=== PATIENT | male | born 1975 | race Caucasian/White ===

== ENCOUNTER 2024-06-16 20:25 | Observation (INO) | payer MEDICAID ==
[2024-06-16] MEDS ORDERED: Zofran 4 MG/2 ML VIAL ONE (20:42)
[2024-06-16] MEDS ORDERED: MORPHINE SULFATE 4 MG INJ ONE (20:42)
[2024-06-16] MEDS ORDERED: Sodium Chloride 0.9% 1000 ML 1,000 ML ONE (20:43)
[2024-06-16] MEDS: Sodium Chloride 0.9% 1000 ML 1,000 ML IV STA (20:47)
[2024-06-16] MEDS: MORPHINE SULFATE 4 MG INJ IV ONE (20:48)
[2024-06-16] MEDS: Zofran 4 MG/2 ML VIAL IV ONE (20:48)
[2024-06-16 20:55] LABS: Absolute Neutrophil Ct (ANC) 5.44 x10^3/uL (1.78-5.38); BASOPHIL % 0.4 % (0.2-1.2); Basophil (Absolute #) 0.03 x10^3/uL (0.01-0.08); Eosinophil % 1.5 % (0.8-7.0); Eosinophil (Absolute #) 0.13 x10^3/uL (0.04-0.54); Hematocrit 30.4 % (40.1-51.0); Hemoglobin 10.5 g/dL (13.7-17.5); IMMATURE GRAN # 0.04 x10^3u/L (0.001-0.031); IMMATURE GRAN % 0.5 % (0.001-0.429); Lymphocyte (Absolute #) 2.12 x10^3/uL (1.32-3.57); Lymphocytes % 24.8 % (21.8-53.1); Mean Cell Volume 83.3 fL (79.0-92.2); Mean Corpuscular Hemoglobin 28.8 pg (25.7-32.2); Mean Corpuscular Hgb Concent. 34.5 g/dL (32.3-36.5); Mean Platelet Volume 9.1 fL (9.4-12.4); Monocyte (Absolute #) 0.79 x10^3/uL (0.30-0.82); Monocytes % 9.2 % (5.3-12.2); Neutrophil % 63.6 % (34.0-67.9); Platelet Count 254 x10^3/uL (163-337); Red Blood Count 3.65 x10^6/uL (4.63-6.08); Red Cell Distribution Width 12.5 % (11.6-14.4); White Blood Count 8.6 x10^3/uL (4.23-9.07)
[2024-06-16 21:32] LABS: INFLUENZA A NEGATIVE (NEGATIVE); INFLUENZA B NEGATIVE (NEGATIVE); RESPIRATORY SYNCTIAL VIRUS NEGATIVE (NEGATIVE); SARS-CoV-2 Xpert Express NEGATIVE (NEGATIVE)
[2024-06-16] MEDS ORDERED: Ativan 2 MG/1 ML VIAL ONE (21:43)
[2024-06-16] MEDS ORDERED: Keppra 500 MG/5 ML ONE (21:43)
[2024-06-16] MEDS ORDERED: D5w 100ML Mini Bag 100 ML 100 ML IV ONE (21:44)
[2024-06-16] MEDS: Ativan 2 MG/1 ML VIAL IV ONE (21:45)
[2024-06-16] MEDS: Keppra 500 MG/5 ML*** 1,500 MG in D5w 100ML Mini Bag 100 ML 100 ML IV ONE (21:46)
[2024-06-16 22:04] LABS: ALBUMIN 3.8 g/dL (3.5-5.0); ANION GAP 13.8 MEQ/L (5-15); BILIRUBIN,TOTAL 0.3 mg/dL (0.2-1.3); Calcium 9.1 mg/dL (8.4-10.2); Creatinine 1 0.75 mg/dL (0.66-1.25); EST GLOMERULAR FILTRATION RATE 109.9 ML/MIN; MAGNESIUM 1.7 mg/dL (1.6-2.3); Potassium 4.7 mmol/L (3.5-5.1)
--- NOTE | 2024-06-16 22:32 | XRAY ---
Indication: Chest pain. Comparison: None Portable chest demonstrates minimal left base subsegmental atelectasis/scarring. Remaining heart and lungs unremarkable. Bony thorax intact with mild degenerative changes.
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
[2024-06-16 23:49] LABS: Appearance Clear (Clear); Bacteria None Seen /HPF (None Seen); Bilirubin Negative (Negative); Blood Negative (Negative); Epithelial Cells None Seen /HPF (None Seen); Glucose, Urine Negative (Negative); Hyaline Casts NONE SEEN /LPF (0-2); Ketones Negative (Negative); Leukocyte Esterase Negative (Negative); Nitrite Negative (Negative); Protein,Urine Dip Negative (Negative); RBC 0-2 /HPF (0-5); Specific Gravity <=1.005 (1.005-1.030); Urobilinogen 0.2 mg/dL (0.2); WBC 0-2 /HPF (0-5)
[2024-06-17] MEDS ORDERED: Nitrostat 0.4 MG Tablet SL PRN (02:32)
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
[2024-06-17 04:57] LABS: Hematocrit 32.1 % (40.1-51.0); Hemoglobin 10.5 g/dL (13.7-17.5); Mean Cell Volume 88.2 fL (79.0-92.2); Mean Corpuscular Hemoglobin 28.8 pg (25.7-32.2); Mean Corpuscular Hgb Concent. 32.7 g/dL (32.3-36.5); Mean Platelet Volume 9.7 fL (9.4-12.4); Platelet Count 224 x10^3/uL (163-337); Red Blood Count 3.64 x10^6/uL (4.63-6.08); Red Cell Distribution Width 12.7 % (11.6-14.4); White Blood Count 7.1 x10^3/uL (4.23-9.07)
[2024-06-17 05:43] LABS: ANION GAP 16.8 MEQ/L (5-15); Calcium 8.8 mg/dL (8.4-10.2); Creatinine 1 0.64 mg/dL (0.66-1.25); EST GLOMERULAR FILTRATION RATE 115.3 ML/MIN; Potassium 4.4 mmol/L (3.5-5.1)
[2024-06-17] MEDS ORDERED: Tums EX 750 MG PO PRN (07:18)
[2024-06-17] MEDS: HUMALOG SQ SCH (08:10)
[2024-06-17] MEDS: ECOTRIN 81 MG PO SCH (10:29)
[2024-06-17] MEDS: VITAMIN B-1 100 MG PO SCH (10:29)
[2024-06-17] MEDS: KEPPRA PO SCH (10:29)
[2024-06-17] MEDS: FOLATE 1 MG PO SCH (10:29)
[2024-06-17] MEDS: Risperdal 1 MG PO SCH (10:30)
[2024-06-17] MEDS: Senokot-S Tablet PO SCH (10:30)
[2024-06-17] MEDS: NEURONTIN PO SCH (10:30)
[2024-06-17] MEDS: lamICTAL 100MG TABLET PO SCH (10:31)
[2024-06-17] MEDS: Zestril 5 MG PO SCH (10:31)
[2024-06-17] MEDS: NICODERM CQ 14 MG TOP SCH (10:32)
[2024-06-17] MEDS: Artificial Tears 15 ML OP SCH (11:36)
--- NOTE | 2024-06-17 14:10 | PCM.DS ---
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 admitted on 06/17 at 2:47 AM. Patient has had seizures since a traumatic brain injury at 9 years of age. Pt reported on admission that for the last month he has been having more frequent seizures, at least 1 a day, although sometimes more than that. He was previously residing at a jail in [place], but moved 2 days ago to [facility]. He was having seizures there, so the provider increase his Lamictal from 25 mg to 50 mg. However, patient had 3 further seizures today, and so he was sent to the emergency room. He had another witnessed generalized tonic-clonic seizure in the ED, requiring Ativan, and then he was loaded with IV Keppra. Patient also notes that for the past 2 days he has been having burning substernal chest pain, radiating to the left arm, associated with dyspnea, nausea, and numbness, lasting a few hours. Occurring at rest, but also worsened after one of his seizures. He has a history of prior stents placed, and notes that this pain is similar to that pain before. He states he is currently having this chest pain. However, his history is somewhat variable; nursing mentioned that she had just asked him about chest pain he denied any thing. Also, his jail records show he has orders for PRN Bentyl and calcium carbonate for chest pain, and patient notes that he does get some relief of his burning chest pain with these medications. He also has PRN nitroglycerin at the jail, but he states this has either not been used or not been helpful in his symptoms. Since admission pt has had no further seizures. Neurology consulted and recommended to continue continue Keppra 500 BID and ok to d/c back to [facility]. Pt to f/u OP with neurology. - Vitals & Intake/Output Vital Signs: Vital Signs Temperature 97.4 F 06/17/24 11:58 Pulse Rate 74 06/17/24 11:58 Respiratory Rate 17 06/17/24 11:58 Blood Pressure 157/82 06/17/24 11:58 O2 Sat by Pulse Oximetry 96 06/17/24 11:58 Intake & Output: Intake & Output 06/15/24 06/16/24 06/17/24 06/18/24 11:59 11:59 11:59 11:59 Intake Total 520 Balance 520 Weight 123.3 kg - Lab Result Diagrams: 06/17/24 04:35 06/17/24 04:35 Lab Results-Last 24 Hrs: Lab Results-Last 24 Hours 06/16/24 06/16/24 06/16/24 Range/Units 20:45 20:48 20:48 WBC 8.6 (4.23-9.07) x10^3/uL RBC 3.65 L (4.63-6.08) x10^6/uL Hgb 10.5 L (13.7-17.5) g/dL Hct 30.4 L (40.1-51.0) % MCV 83.3 (79.0-92.2) fL MCH 28.8 (25.7-32.2) pg MCHC 34.5 (32.3-36.5) g/dL RDW 12.5 (11.6-14.4) % Plt Count 254 (163-337) x10^3/uL MPV 9.1 L (9.4-12.4) fL Gran % 63.6 (34.0-67.9) % Immature Gran % (Auto) 0.5 H (0.001-0.429) % Nucleat RBC Rel Count 0.0 (0.00-0.2) % Eos # (Auto) 0.13 (0.04-0.54) x10^3/uL Immature Gran # (Auto) 0.04 H (0.001-0.031) x10^3u/L Absolute Lymphs (auto) 2.12 (1.32-3.57) x10^3/uL Absolute Monos (auto) 0.79 (0.30-0.82) x10^3/uL Absolute Nucleated RBC 0.00 (0.00-0.012) x10^3u/L Lymphocytes % 24.8 (21.8-53.1) % Monocytes % 9.2 (5.3-12.2) % Eosinophils % 1.5 (0.8-7.0) % Basophils % 0.4 (0.2-1.2) % Absolute Granulocytes 5.44 H (1.78-5.38) x10^3/uL Basophils # 0.03 (0.01-0.08) x10^3/uL Sodium 135 (135-145) mmol/L Potassium 4.7 (3.5-5.1) mmol/L Chloride 102 (98-107) mmol/L Carbon Dioxide 24 (22-30) mmol/L Anion Gap 13.8 (5-15) MEQ/L BUN 18 (9-20) mg/dL Creatinine 0.75 (0.66-1.25) mg/dL Estimated GFR 109.9 ML/MIN Glucose 178 H (74-106) mg/dL POC Glucometer (74 to 106) mg/dL Lactic Acid 1.2 (0.4-2.0) Calcium 9.1 (8.4-10.2) mg/dL Magnesium 1.7 (1.6-2.3) mg/dL Total Bilirubin 0.30 (0.2-1.3) mg/dL AST 31 (17-59) U/L ALT 25 (0-50) U/L Alkaline Phosphatase 89 (38-126) U/L Creatine Kinase 356 H (55-170) U/L Troponin I (0.000-0.033) ng/mL Serum Total Protein 6.0 L (6.3-8.2) g/dL Albumin 3.8 (3.5-5.0) g/dL Lipase 232 (23-300) U/L Urine Color (Yellow) Urine Appearance (Clear) Urine pH (4.6-8.0) Ur Specific [place] (1.005-1.030) Urine Protein (Negative) Urine Glucose (UA) (Negative) mg/dL Urine Ketones (Negative) Urine Blood (Negative) Urine Nitrite (Negative) Urine Bilirubin (Negative) Urine Urobilinogen (0.2) mg/dL Ur Leukocyte Esterase (Negative) U Hyaline Cast (Auto) (0-2) /LPF Urine Microscopic RBC (0-5) /HPF Urine Microscopic WBC (0-5) /HPF Ur Epithelial Cells (None Seen) /HPF Urine Bacteria (None Seen) /HPF Urine Culture Reflexed (NO) Influenza Type A Ag (NEGATIVE) Influenza Type B Ag (NEGATIVE) RSV (PCR) (NEGATIVE) SARS-CoV-2 (PCR) (NEGATIVE) 06/16/24 06/16/24 06/16/24 Range/Units 20:48 20:50 22:10 WBC (4.23-9.07) x10^3/uL RBC (4.63-6.08) x10^6/uL Hgb (13.7-17.5) g/dL Hct (40.1-51.0) % MCV (79.0-92.2) fL MCH (25.7-32.2) pg MCHC (32.3-36.5) g/dL RDW (11.6-14.4) % Plt Count (163-337) x10^3/uL MPV (9.4-12.4) fL Gran % (34.0-67.9) % Immature Gran % (Auto) (0.001-0.429) % Nucleat RBC Rel Count (0.00-0.2) % Eos # (Auto) (0.04-0.54) x10^3/uL Immature Gran # (Auto) (0.001-0.031) x10^3u/L Absolute Lymphs (auto) (1.32-3.57) x10^3/uL Absolute Monos (auto) (0.30-0.82) x10^3/uL Absolute Nucleated RBC (0.00-0.012) x10^3u/L Lymphocytes % (21.8-53.1) % Monocytes % (5.3-12.2) % Eosinophils % (0.8-7.0) % Basophils % (0.2-1.2) % Absolute Granulocytes (1.78-5.38) x10^3/uL Basophils # (0.01-0.08) x10^3/uL Sodium (135-145) mmol/L Potassium (3.5-5.1) mmol/L Chloride (98-107) mmol/L Carbon Dioxide (22-30) mmol/L Anion Gap (5-15) MEQ/L BUN (9-20) mg/dL Creatinine (0.66-1.25) mg/dL Estimated GFR ML/MIN Glucose (74-106) mg/dL POC Glucometer (74 to 106) mg/dL Lactic Acid (0.4-2.0) Calcium (8.4-10.2) mg/dL Magnesium (1.6-2.3) mg/dL Total Bilirubin (0.2-1.3) mg/dL AST (17-59) U/L ALT (0-50) U/L Alkaline Phosphatase (38-126) U/L Creatine Kinase (55-170) U/L Troponin I < 0.012 (0.000-0.033) ng/mL Serum Total Protein (6.3-8.2) g/dL Albumin (3.5-5.0) g/dL Lipase (23-300) U/L Urine Color Yellow (Yellow) Urine Appearance Clear (Clear) Urine pH 6.0 (4.6-8.0) Ur Specific [place] <=1.005 (1.005-1.030) Urine Protein Negative (Negative) Urine Glucose (UA) Negative (Negative) mg/dL Urine Ketones Negative (Negative) Urine Blood Negative (Negative) Urine Nitrite Negative (Negative) Urine Bilirubin Negative (Negative) Urine Urobilinogen 0.2 (0.2) mg/dL Ur Leukocyte Esterase Negative (Negative) U Hyaline Cast (Auto) NONE SEEN (0-2) /LPF Urine Microscopic RBC 0-2 (0-5) /HPF Urine Microscopic WBC 0-2 (0-5) /HPF Ur Epithelial Cells None Seen (None Seen) /HPF Urine Bacteria None Seen (None Seen) /HPF Urine Culture Reflexed NO (NO) Influenza Type A Ag NEGATIVE (NEGATIVE) Influenza Type B Ag NEGATIVE (NEGATIVE) RSV (PCR) NEGATIVE (NEGATIVE) SARS-CoV-2 (PCR) NEGATIVE (NEGATIVE) 06/17/24 06/17/24 06/17/24 Range/Units 01:04 04:33 04:35 WBC (4.23-9.07) x10^3/uL RBC (4.63-6.08) x10^6/uL Hgb (13.7-17.5) g/dL Hct (40.1-51.0) % MCV (79.0-92.2) fL MCH (25.7-32.2) pg MCHC (32.3-36.5) g/dL RDW (11.6-14.4) % Plt Count (163-337) x10^3/uL MPV (9.4-12.4) fL Gran % (34.0-67.9) % Immature Gran % (Auto) (0.001-0.429) % Nucleat RBC Rel Count (0.00-0.2) % Eos # (Auto) (0.04-0.54) x10^3/uL Immature Gran # (Auto) (0.001-0.031) x10^3u/L Absolute Lymphs (auto) (1.32-3.57) x10^3/uL Absolute Monos (auto) (0.30-0.82) x10^3/uL Absolute Nucleated RBC (0.00-0.012) x10^3u/L Lymphocytes % (21.8-53.1) % Monocytes % (5.3-12.2) % Eosinophils % (0.8-7.0) % Basophils % (0.2-1.2) % Absolute Granulocytes (1.78-5.38) x10^3/uL Basophils # (0.01-0.08) x10^3/uL Sodium (135-145) mmol/L Potassium (3.5-5.1) mmol/L Chloride (98-107) mmol/L Carbon Dioxide (22-30) mmol/L Anion Gap (5-15) MEQ/L BUN (9-20) mg/dL Creatinine (0.66-1.25) mg/dL Estimated GFR ML/MIN Glucose (74-106) mg/dL POC Glucometer (74 to 106) mg/dL Lactic Acid (0.4-2.0) Calcium (8.4-10.2) mg/dL Magnesium (1.6-2.3) mg/dL Total Bilirubin (0.2-1.3) mg/dL AST (17-59) U/L ALT (0-50) U/L Alkaline Phosphatase (38-126) U/L Creatine Kinase 245 H (55-170) U/L Troponin I < 0.012 < 0.012 (0.000-0.033) ng/mL Serum Total Protein (6.3-8.2) g/dL Albumin (3.5-5.0) g/dL Lipase (23-300) U/L Urine Color (Yellow) Urine Appearance (Clear) Urine pH (4.6-8.0) Ur Specific [place] (1.005-1.030) Urine Protein (Negative) Urine Glucose (UA) (Negative) mg/dL Urine Ketones (Negative) Urine Blood (Negative) Urine Nitrite (Negative) Urine Bilirubin (Negative) Urine Urobilinogen (0.2) mg/dL Ur Leukocyte Esterase (Negative) U Hyaline Cast (Auto) (0-2) /LPF Urine Microscopic RBC (0-5) /HPF Urine Microscopic WBC (0-5) /HPF Ur Epithelial Cells (None Seen) /HPF Urine Bacteria (None Seen) /HPF Urine Culture Reflexed (NO) Influenza Type A Ag (NEGATIVE) Influenza Type B Ag (NEGATIVE) RSV (PCR) (NEGATIVE) SARS-CoV-2 (PCR) (NEGATIVE) 06/17/24 06/17/24 06/17/24 Range/Units 04:35 04:35 07:39 WBC 7.1 (4.23-9.07) x10^3/uL RBC 3.64 L (4.63-6.08) x10^6/uL Hgb 10.5 L (13.7-17.5) g/dL Hct 32.1 L (40.1-51.0) % MCV 88.2 (79.0-92.2) fL MCH 28.8 (25.7-32.2) pg MCHC 32.7 (32.3-36.5) g/dL RDW 12.7 (11.6-14.4) % Plt Count 224 (163-337) x10^3/uL MPV 9.7 (9.4-12.4) fL Gran % (34.0-67.9) % Immature Gran % (Auto) (0.001-0.429) % Nucleat RBC Rel Count (0.00-0.2) % Eos # (Auto) (0.04-0.54) x10^3/uL Immature Gran # (Auto) (0.001-0.031) x10^3u/L Absolute Lymphs (auto) (1.32-3.57) x10^3/uL Absolute Monos (auto) (0.30-0.82) x10^3/uL Absolute Nucleated RBC (0.00-0.012) x10^3u/L Lymphocytes % (21.8-53.1) % Monocytes % (5.3-12.2) % Eosinophils % (0.8-7.0) % Basophils % (0.2-1.2) % Absolute Granulocytes (1.78-5.38) x10^3/uL Basophils # (0.01-0.08) x10^3/uL Sodium 138 (135-145) mmol/L Potassium 4.4 (3.5-5.1) mmol/L Chloride 105 (98-107) mmol/L Carbon Dioxide 21 L (22-30) mmol/L Anion Gap 16.8 H (5-15) MEQ/L BUN 15 (9-20) mg/dL Creatinine 0.64 L (0.66-1.25) mg/dL Estimated GFR 115.3 ML/MIN Glucose 163 H (74-106) mg/dL POC Glucometer 145 H (74 to 106) mg/dL Lactic Acid (0.4-2.0) Calcium 8.8 (8.4-10.2) mg/dL Magnesium (1.6-2.3) mg/dL Total Bilirubin (0.2-1.3) mg/dL AST (17-59) U/L ALT (0-50) U/L Alkaline Phosphatase (38-126) U/L Creatine Kinase (55-170) U/L Troponin I (0.000-0.033) ng/mL Serum Total Protein (6.3-8.2) g/dL Albumin (3.5-5.0) g/dL Lipase (23-300) U/L Urine Color (Yellow) Urine Appearance (Clear) Urine pH (4.6-8.0) Ur Specific [place] (1.005-1.030) Urine Protein (Negative) Urine Glucose (UA) (Negative) mg/dL Urine Ketones (Negative) Urine Blood (Negative) Urine Nitrite (Negative) Urine Bilirubin (Negative) Urine Urobilinogen (0.2) mg/dL Ur Leukocyte Esterase (Negative) U Hyaline Cast (Auto) (0-2) /LPF Urine Microscopic RBC (0-5) /HPF Urine Microscopic WBC (0-5) /HPF Ur Epithelial Cells (None Seen) /HPF Urine Bacteria (None Seen) /HPF Urine Culture Reflexed (NO) Influenza Type A Ag (NEGATIVE) Influenza Type B Ag (NEGATIVE) RSV (PCR) (NEGATIVE) SARS-CoV-2 (PCR) (NEGATIVE) 06/17/24 Range/Units 11:36 WBC (4.23-9.07) x10^3/uL RBC (4.63-6.08) x10^6/uL Hgb (13.7-17.5) g/dL Hct (40.1-51.0) % MCV (79.0-92.2) fL MCH (25.7-32.2) pg MCHC (32.3-36.5) g/dL RDW (11.6-14.4) % Plt Count (163-337) x10^3/uL MPV (9.4-12.4) fL Gran % (34.0-67.9) % Immature Gran % (Auto) (0.001-0.429) % Nucleat RBC Rel Count (0.00-0.2) % Eos # (Auto) (0.04-0.54) x10^3/uL Immature Gran # (Auto) (0.001-0.031) x10^3u/L Absolute Lymphs (auto) (1.32-3.57) x10^3/uL Absolute Monos (auto) (0.30-0.82) x10^3/uL Absolute Nucleated RBC (0.00-0.012) x10^3u/L Lymphocytes % (21.8-53.1) % Monocytes % (5.3-12.2) % Eosinophils % (0.8-7.0) % Basophils % (0.2-1.2) % Absolute Granulocytes (1.78-5.38) x10^3/uL Basophils # (0.01-0.08) x10^3/uL Sodium (135-145) mmol/L Potassium (3.5-5.1) mmol/L Chloride (98-107) mmol/L Carbon Dioxide (22-30) mmol/L Anion Gap (5-15) MEQ/L BUN (9-20) mg/dL Creatinine (0.66-1.25) mg/dL Estimated GFR ML/MIN Glucose (74-106) mg/dL POC Glucometer 169 H (74 to 106) mg/dL Lactic Acid (0.4-2.0) Calcium (8.4-10.2) mg/dL Magnesium (1.6-2.3) mg/dL Total Bilirubin (0.2-1.3) mg/dL AST (17-59) U/L ALT (0-50) U/L Alkaline Phosphatase (38-126) U/L Creatine Kinase (55-170) U/L Troponin I (0.000-0.033) ng/mL Serum Total Protein (6.3-8.2) g/dL Albumin (3.5-5.0) g/dL Lipase (23-300) U/L Urine Color (Yellow) Urine Appearance (Clear) Urine pH (4.6-8.0) Ur Specific [place] (1.005-1.030) Urine Protein (Negative) Urine Glucose (UA) (Negative) mg/dL Urine Ketones (Negative) Urine Blood (Negative) Urine Nitrite (Negative) Urine Bilirubin (Negative) Urine Urobilinogen (0.2) mg/dL Ur Leukocyte Esterase (Negative) U Hyaline Cast (Auto) (0-2) /LPF Urine Microscopic RBC (0-5) /HPF Urine Microscopic WBC (0-5) /HPF Ur Epithelial Cells (None Seen) /HPF Urine Bacteria (None Seen) /HPF Urine Culture Reflexed (NO) Influenza Type A Ag (NEGATIVE) Influenza Type B Ag (NEGATIVE) RSV (PCR) (NEGATIVE) SARS-CoV-2 (PCR) (NEGATIVE) Micro Results-Entire Visit: Accuchecks Date 06/17/24 Date 06/17/24 Time 11:56 Time 07:56 - Radiology Exams Ordered Rad Exams-Entire Visit: Radiology Procedures Category Date Time Status CHEST 1 VIEW (PORTABLE) Stat Exams 06/16/24 21:13 Completed - Procedures and Test Procedures and Tests throughout Hospitalization: Therapy Orders & Screens 06/17/24 02:44 EKG PRN Comment: Diagnosis: Recurrent seizures, chest pain r/o Discharge Exam General Appearance: no apparent distress, alert, obese Neurologic Exam: alert, oriented x 3, cooperative, normal mood/affect, nml cerebellar function, sensation nml, No motor deficits Eye Exam: PERRL, EOMI, eyes nml inspection Ears, Nose, Throat Exam: normal ENT inspection, pharynx normal, moist mucous membranes Neck Exam: normal inspection, non-tender, supple, full range of motion Respiratory Exam: normal breath sounds, lungs clear, No respiratory distress Cardiovascular Exam: regular rate/rhythm, normal heart sounds Gastrointestinal/Abdomen Exam: soft, No tenderness, No mass Male Genitalia Exam: deferred Rectal Exam: deferred Back Exam: normal inspection, normal range of motion, No CVA tenderness, No vertebral tenderness Extremity Exam: normal inspection, normal range of motion Skin Exam: normal color, warm, dry Final Diagnosis/Problem List - Final Discharge Diagnosis/Problem (1) Recurrent seizures Current Visit: Yes Status: Acute Code(s): G40.909 - EPILEPSY, UNSP, NOT INTRACTABLE, WITHOUT STATUS EPILEPTICUS (2) Chest pain Current Visit: Yes Status: Acute Code(s): R07.9 - CHEST PAIN, UNSPECIFIED (3) HTN (hypertension) Current Visit: Yes Status: Acute Code(s): I10 - ESSENTIAL (PRIMARY) HYPERTENSION (4) Hx of coronary artery disease Current Visit: Yes Status: Acute Code(s): Z86.79 - PERSONAL HISTORY OF OTHER DISEASES OF THE CIRCULATORY SYSTEM (5) Type II diabetes mellitus Current Visit: Yes Status: Acute (6) Schizoaffective disorder Current Visit: Yes Status: Acute Code(s): F25.9 - SCHIZOAFFECTIVE DISORDER, UNSPECIFIED (7) Nicotine dependence Current Visit: Yes Status: Acute Assessment & Plan: ## Recurrent seizures secondary to TBI. It appears that the seizures have been uncontrolled for at least the last month, although the history is somewhat unreliable. However, he is been having multiple seizures throughout the day today. No clear triggers for why this would be. He was loaded with Keppra, and has not had seizures since then. Continue home Lamictal 50 BID (note, this dose was just recently increased) Start Keppra 500 mg p.o. BID, as this is what was used to terminate his seizures in the ED - Neurology consult- recommended to continue Keppra OP and F/U with neurology OP. ## Chest pain patient has risk factors with his smoking history, prior [place], and somewhat typical description of his angina with associated symptoms, although appears to be nonexertional and perhaps not relieved by nitroglycerin. Also, the symptoms appear to be associated with his seizures, and may not truly reflect angina. His first 2 troponins are negative, and he has no EKG changes. Monitor on telemetry troponin x3 negative Try to relieve his chest pain with his PRN Bentyl and Tums from his home medication list, and if relieved, will not pursue further stress testing ## Type 2 diabetes on insulin at home. Continue home Lantus 45 units QHS, lispro 10 units with meals Placed on moderate dose sliding scale insulin Hold home metformin while inpatient ## Hypertension blood pressure controlled Continue home lisinopril 5 ## History of CAD with reported history of stent placement. Continue atorvastatin 20, aspirin 81 mg ## Schizoaffective disorder Continue home risperidone 1 mg BID, gabapentin 300 TID, Lexapro 15 QHS ## Nicotine dependence patient is a former half pack a day smoker, but quit 3 months ago. Continue nicotine 14 mg patch - advised cessation Code(s): F17.200 - NICOTINE DEPENDENCE, UNSPECIFIED, UNCOMPLICATED - Discharge Discharge Date: 06/17/24 (Lexie Alexander) Disposition: XFER OTHER Condition: Stable Prescriptions: New Levetiracetam [Keppra] 500 mg PO BID 30 Days #60 tablet Continue Calcium Carbonate [Tums] 1,000 mg PO Q8H PRN PRN PRN Reason: Chest Pain Guaifen/Phenyleph/Acetaminophn [Mucinex Sinus-Max Severe Cplt] 1 tab PO DAILY PRN PRN PRN Reason: Sinus Congestion Nitroglycerin 0.4 mg SL DAILY PRN PRN PRN Reason: Chest Pain Sennosides/Docusate Sodium [Senna-Docusate Sodium Tablet] 2 tab PO BID risperiDONE [Risperidone] 1 mg PO BID Nicotine 14 mg [Nicoderm Cq 14 mg] 14 mg TOP DAILY Metformin HCl 500 mg [Glucophage 500 MG] 500 mg PO BID Melatonin 10 mg PO HS Loperamide HCl [Loperamide] 2 mg PO Q2H/PRN PRN PRN Reason: Diarrhea lisinopriL [Lisinopril] 5 mg PO DAILY Lamotrigine [Lamotrigine ER] 50 mg PO BID Insulin Glargine,Hum.rec.anlog [Lantus] 45 unit SQ HS Insulin Lispro 10 units SQ AC Insulin Lispro [Insulin Lispro Kwikpen U-100] 1 unit IJ UD glyBURIDE [Glyburide] 2.5 mg PO DAILY Gabapentin 300 mg PO TID Folic Acid 1 mg PO DAILY Famotidine 40 mg PO HS Escitalopram Oxalate 15 mg PO HS Dicyclomine HCl 20 mg [Bentyl 20 mg] 20 mg PO Q6H PRN PRN PRN Reason: Chest Pain Menthol [Biofreeze] 1 applic TOP DAILY Carboxymethylcellulose Sodium [Artificial Tears] 1 drop OP BID Aspirin 81 mg PO DAILY Acetaminophen 325 mg [Tylenol 325 mg] 650 mg PO Q4H PRN PRN PRN Reason: Pain Atorvastatin Calcium 20 mg PO HS Thiamine HCl [Vitamin B-1] 100 mg PO DAILY Follow up with: DOCTOR,NO FAMILY [Primary Care Provider] -
[2024-06-17] MEDS: Nitrostat 0.4 MG Tablet SL PRN (15:26)
[2024-06-17] MEDS: TYLENOL 325 MG PO PRN (15:29)
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
--- NOTE | 2024-06-17 16:29 | PCM.NOTE ---
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 admitted on 06/17 at 2:47 AM. Patient has had seizures since a traumatic brain injury at 9 years of age. Pt reported on admission that for the last month he has been having more frequent seizures, at least 1 a day, although sometimes more than that. He was previously residing at a halfway in [place], but moved 2 days ago to [facility]. He was having seizures there, so the provider increase his Lamictal from 25 mg to 50 mg. However, patient had 3 further seizures today, and so he was sent to the emergency room. He had another witnessed generalized tonic-clonic seizure in the ED, requiring Ativan, and then he was loaded with IV Keppra. Patient also notes that for the past 2 days he has been having burning substernal chest pain, radiating to the left arm, associated with dyspnea, nausea, and numbness, lasting a few hours. Occurring at rest, but also worsened after one of his seizures. He has a history of prior stents placed, and notes that this pain is similar to that pain before. He states he is currently having this chest pain. However, his history is somewhat variable; nursing mentioned that she had just asked him about chest pain he denied anything. Also, his halfway records show he has orders for PRN Bentyl and calcium carbonate for chest pain, and patient notes that he does get some relief of his burning chest pain with these medications. He also has PRN nitroglycerin at the halfway, but he states this has either not been used or not been helpful in his symptoms. Since admission pt has had no further seizures. Neurology consulted and recommended to continue continue Keppra 500 BID and ok to d/c back to [facility]. Pt to f/u OP with neurology. Pt later this afternoon had a seizure, unsure of how lillian it lasted but ativan 2mg IV was given. He then developed CP and requested Morphine. Since he just had ativan this was not provided as to not cause resp. depression. Nitro provided, EKG, and trops x3 ordered. Discussed pt case with cardiology. Call out to neurology to ask if pt needs to be seizure free for a certain period of time prior to d/c. Will keep pt overnight. - Review of Systems Constitutional: No Fever, No Chills Eyes: No Symptoms Ears, Nose, & Throat: No Symptoms Respiratory: No Cough, No Short Of Breath Cardiac: Chest Pain, No Edema, No Syncope Abdominal/Gastrointestinal: No Abdominal Pain, No Nausea, No Vomiting, No Diarrhea Genitourinary Symptoms: No Dysuria Musculoskeletal: No Back Pain, No Neck Pain Skin: No Rash Neurological: Seizure, No Dizziness, No Focal Weakness, No Sensory Changes Psychological: No Symptoms Endocrine: No Symptoms Hematologic/Lymphatic: No Symptoms Immunological/Allergic: No Symptoms Objective Exam General Appearance: no apparent distress, alert Neurologic Exam: alert, oriented x 3, cooperative, normal mood/affect, nml cerebellar function, sensation nml, No motor deficits Skin Exam: normal color, warm, dry Eye Exam: PERRL, EOMI, eyes nml inspection Ears, Nose, Throat Exam: normal ENT inspection, pharynx normal, moist mucous membranes Neck Exam: normal inspection, non-tender, supple, full range of motion Respiratory Exam: normal breath sounds, lungs clear, No respiratory distress Cardiovascular Exam: regular rate/rhythm, normal heart sounds Gastrointestinal/Abdomen Exam: soft, No tenderness, No mass Extremity Exam: normal inspection, normal range of motion Back Exam: normal inspection, normal range of motion, No CVA tenderness, No vertebral tenderness Male Genitalia Exam: deferred Rectal Exam: deferred Objective Data Vital Signs: Vital Signs - 24 hr Temp Pulse Resp BP BP Pulse Ox 06/17/24 16:22 78 122/65 06/17/24 15:26 72 122/65 06/17/24 15:21 72 15 122/65 94 L 06/17/24 11:58 97.4 F 74 17 157/82 96 06/17/24 07:56 97.2 F 65 18 121/65 96 06/17/24 04:00 97.1 F 63 20 121/59 96 06/17/24 01:54 97.6 F 70 18 113/60 96 06/17/24 01:03 64 17 126/77 95 06/17/24 00:59 96 06/17/24 00:30 63 18 126/77 96 06/17/24 00:21 95 06/17/24 00:00 65 18 143/90 95 06/16/24 23:30 65 17 150/94 06/16/24 23:00 67 14 157/99 95 06/16/24 22:30 64 15 155/97 96 06/16/24 22:00 88 19 167/91 97 06/16/24 21:30 64 7 L 164/94 98 06/16/24 21:00 68 12 154/82 97 06/16/24 20:42 72 17 165/82 98 06/16/24 20:39 97.3 F 75 20 165/82 95 Pain Assessment - Last Documented Pain Intensity 8 Pain Scale Used 0-10 Pain Scale Intake and Output: Intake & Output 06/15/24 06/16/24 06/17/24 06/18/24 11:59 11:59 11:59 11:59 Intake Total 520 480 Balance 520 480 Weight 123.3 kg Lab Results: Lab Results-Last 24 Hours 06/16/24 06/16/24 06/16/24 Range/Units 20:45 20:48 20:48 WBC 8.6 (4.23-9.07) x10^3/uL RBC 3.65 L (4.63-6.08) x10^6/uL Hgb 10.5 L (13.7-17.5) g/dL Hct 30.4 L (40.1-51.0) % MCV 83.3 (79.0-92.2) fL MCH 28.8 (25.7-32.2) pg MCHC 34.5 (32.3-36.5) g/dL RDW 12.5 (11.6-14.4) % Plt Count 254 (163-337) x10^3/uL MPV 9.1 L (9.4-12.4) fL Gran % 63.6 (34.0-67.9) % Immature Gran % (Auto) 0.5 H (0.001-0.429) % Nucleat RBC Rel Count 0.0 (0.00-0.2) % Eos # (Auto) 0.13 (0.04-0.54) x10^3/uL Immature Gran # (Auto) 0.04 H (0.001-0.031) x10^3u/L Absolute Lymphs (auto) 2.12 (1.32-3.57) x10^3/uL Absolute Monos (auto) 0.79 (0.30-0.82) x10^3/uL Absolute Nucleated RBC 0.00 (0.00-0.012) x10^3u/L Lymphocytes % 24.8 (21.8-53.1) % Monocytes % 9.2 (5.3-12.2) % Eosinophils % 1.5 (0.8-7.0) % Basophils % 0.4 (0.2-1.2) % Absolute Granulocytes 5.44 H (1.78-5.38) x10^3/uL Basophils # 0.03 (0.01-0.08) x10^3/uL Sodium 135 (135-145) mmol/L Potassium 4.7 (3.5-5.1) mmol/L Chloride 102 (98-107) mmol/L Carbon Dioxide 24 (22-30) mmol/L Anion Gap 13.8 (5-15) MEQ/L BUN 18 (9-20) mg/dL Creatinine 0.75 (0.66-1.25) mg/dL Estimated GFR 109.9 ML/MIN Glucose 178 H (74-106) mg/dL POC Glucometer (74 to 106) mg/dL Lactic Acid 1.2 (0.4-2.0) Calcium 9.1 (8.4-10.2) mg/dL Magnesium 1.7 (1.6-2.3) mg/dL Total Bilirubin 0.30 (0.2-1.3) mg/dL AST 31 (17-59) U/L ALT 25 (0-50) U/L Alkaline Phosphatase 89 (38-126) U/L Creatine Kinase 356 H (55-170) U/L Troponin I (0.000-0.033) ng/mL Serum Total Protein 6.0 L (6.3-8.2) g/dL Albumin 3.8 (3.5-5.0) g/dL Lipase 232 (23-300) U/L Urine Color (Yellow) Urine Appearance (Clear) Urine pH (4.6-8.0) Ur Specific [place] (1.005-1.030) Urine Protein (Negative) Urine Glucose (UA) (Negative) mg/dL Urine Ketones (Negative) Urine Blood (Negative) Urine Nitrite (Negative) Urine Bilirubin (Negative) Urine Urobilinogen (0.2) mg/dL Ur Leukocyte Esterase (Negative) U Hyaline Cast (Auto) (0-2) /LPF Urine Microscopic RBC (0-5) /HPF Urine Microscopic WBC (0-5) /HPF Ur Epithelial Cells (None Seen) /HPF Urine Bacteria (None Seen) /HPF Urine Culture Reflexed (NO) Influenza Type A Ag (NEGATIVE) Influenza Type B Ag (NEGATIVE) RSV (PCR) (NEGATIVE) SARS-CoV-2 (PCR) (NEGATIVE) 06/16/24 06/16/24 06/16/24 Range/Units 20:48 20:50 22:10 WBC (4.23-9.07) x10^3/uL RBC (4.63-6.08) x10^6/uL Hgb (13.7-17.5) g/dL Hct (40.1-51.0) % MCV (79.0-92.2) fL MCH (25.7-32.2) pg MCHC (32.3-36.5) g/dL RDW (11.6-14.4) % Plt Count (163-337) x10^3/uL MPV (9.4-12.4) fL Gran % (34.0-67.9) % Immature Gran % (Auto) (0.001-0.429) % Nucleat RBC Rel Count (0.00-0.2) % Eos # (Auto) (0.04-0.54) x10^3/uL Immature Gran # (Auto) (0.001-0.031) x10^3u/L Absolute Lymphs (auto) (1.32-3.57) x10^3/uL Absolute Monos (auto) (0.30-0.82) x10^3/uL Absolute Nucleated RBC (0.00-0.012) x10^3u/L Lymphocytes % (21.8-53.1) % Monocytes % (5.3-12.2) % Eosinophils % (0.8-7.0) % Basophils % (0.2-1.2) % Absolute Granulocytes (1.78-5.38) x10^3/uL Basophils # (0.01-0.08) x10^3/uL Sodium (135-145) mmol/L Potassium (3.5-5.1) mmol/L Chloride (98-107) mmol/L Carbon Dioxide (22-30) mmol/L Anion Gap (5-15) MEQ/L BUN (9-20) mg/dL Creatinine (0.66-1.25) mg/dL Estimated GFR ML/MIN Glucose (74-106) mg/dL POC Glucometer (74 to 106) mg/dL Lactic Acid (0.4-2.0) Calcium (8.4-10.2) mg/dL Magnesium (1.6-2.3) mg/dL Total Bilirubin (0.2-1.3) mg/dL AST (17-59) U/L ALT (0-50) U/L Alkaline Phosphatase (38-126) U/L Creatine Kinase (55-170) U/L Troponin I < 0.012 (0.000-0.033) ng/mL Serum Total Protein (6.3-8.2) g/dL Albumin (3.5-5.0) g/dL Lipase (23-300) U/L Urine Color Yellow (Yellow) Urine Appearance Clear (Clear) Urine pH 6.0 (4.6-8.0) Ur Specific [place] <=1.005 (1.005-1.030) Urine Protein Negative (Negative) Urine Glucose (UA) Negative (Negative) mg/dL Urine Ketones Negative (Negative) Urine Blood Negative (Negative) Urine Nitrite Negative (Negative) Urine Bilirubin Negative (Negative) Urine Urobilinogen 0.2 (0.2) mg/dL Ur Leukocyte Esterase Negative (Negative) U Hyaline Cast (Auto) NONE SEEN (0-2) /LPF Urine Microscopic RBC 0-2 (0-5) /HPF Urine Microscopic WBC 0-2 (0-5) /HPF Ur Epithelial Cells None Seen (None Seen) /HPF Urine Bacteria None Seen (None Seen) /HPF Urine Culture Reflexed NO (NO) Influenza Type A Ag NEGATIVE (NEGATIVE) Influenza Type B Ag NEGATIVE (NEGATIVE) RSV (PCR) NEGATIVE (NEGATIVE) SARS-CoV-2 (PCR) NEGATIVE (NEGATIVE) 06/17/24 06/17/24 06/17/24 Range/Units 01:04 04:33 04:35 WBC (4.23-9.07) x10^3/uL RBC (4.63-6.08) x10^6/uL Hgb (13.7-17.5) g/dL Hct (40.1-51.0) % MCV (79.0-92.2) fL MCH (25.7-32.2) pg MCHC (32.3-36.5) g/dL RDW (11.6-14.4) % Plt Count (163-337) x10^3/uL MPV (9.4-12.4) fL Gran % (34.0-67.9) % Immature Gran % (Auto) (0.001-0.429) % Nucleat RBC Rel Count (0.00-0.2) % Eos # (Auto) (0.04-0.54) x10^3/uL Immature Gran # (Auto) (0.001-0.031) x10^3u/L Absolute Lymphs (auto) (1.32-3.57) x10^3/uL Absolute Monos (auto) (0.30-0.82) x10^3/uL Absolute Nucleated RBC (0.00-0.012) x10^3u/L Lymphocytes % (21.8-53.1) % Monocytes % (5.3-12.2) % Eosinophils % (0.8-7.0) % Basophils % (0.2-1.2) % Absolute Granulocytes (1.78-5.38) x10^3/uL Basophils # (0.01-0.08) x10^3/uL Sodium (135-145) mmol/L Potassium (3.5-5.1) mmol/L Chloride (98-107) mmol/L Carbon Dioxide (22-30) mmol/L Anion Gap (5-15) MEQ/L BUN (9-20) mg/dL Creatinine (0.66-1.25) mg/dL Estimated GFR ML/MIN Glucose (74-106) mg/dL POC Glucometer (74 to 106) mg/dL Lactic Acid (0.4-2.0) Calcium (8.4-10.2) mg/dL Magnesium (1.6-2.3) mg/dL Total Bilirubin (0.2-1.3) mg/dL AST (17-59) U/L ALT (0-50) U/L Alkaline Phosphatase (38-126) U/L Creatine Kinase 245 H (55-170) U/L Troponin I < 0.012 < 0.012 (0.000-0.033) ng/mL Serum Total Protein (6.3-8.2) g/dL Albumin (3.5-5.0) g/dL Lipase (23-300) U/L Urine Color (Yellow) Urine Appearance (Clear) Urine pH (4.6-8.0) Ur Specific [place] (1.005-1.030) Urine Protein (Negative) Urine Glucose (UA) (Negative) mg/dL Urine Ketones (Negative) Urine Blood (Negative) Urine Nitrite (Negative) Urine Bilirubin (Negative) Urine Urobilinogen (0.2) mg/dL Ur Leukocyte Esterase (Negative) U Hyaline Cast (Auto) (0-2) /LPF Urine Microscopic RBC (0-5) /HPF Urine Microscopic WBC (0-5) /HPF Ur Epithelial Cells (None Seen) /HPF Urine Bacteria (None Seen) /HPF Urine Culture Reflexed (NO) Influenza Type A Ag (NEGATIVE) Influenza Type B Ag (NEGATIVE) RSV (PCR) (NEGATIVE) SARS-CoV-2 (PCR) (NEGATIVE) 06/17/24 06/17/24 06/17/24 Range/Units 04:35 04:35 07:39 WBC 7.1 (4.23-9.07) x10^3/uL RBC 3.64 L (4.63-6.08) x10^6/uL Hgb 10.5 L (13.7-17.5) g/dL Hct 32.1 L (40.1-51.0) % MCV 88.2 (79.0-92.2) fL MCH 28.8 (25.7-32.2) pg MCHC 32.7 (32.3-36.5) g/dL RDW 12.7 (11.6-14.4) % Plt Count 224 (163-337) x10^3/uL MPV 9.7 (9.4-12.4) fL Gran % (34.0-67.9) % Immature Gran % (Auto) (0.001-0.429) % Nucleat RBC Rel Count (0.00-0.2) % Eos # (Auto) (0.04-0.54) x10^3/uL Immature Gran # (Auto) (0.001-0.031) x10^3u/L Absolute Lymphs (auto) (1.32-3.57) x10^3/uL Absolute Monos (auto) (0.30-0.82) x10^3/uL Absolute Nucleated RBC (0.00-0.012) x10^3u/L Lymphocytes % (21.8-53.1) % Monocytes % (5.3-12.2) % Eosinophils % (0.8-7.0) % Basophils % (0.2-1.2) % Absolute Granulocytes (1.78-5.38) x10^3/uL Basophils # (0.01-0.08) x10^3/uL Sodium 138 (135-145) mmol/L Potassium 4.4 (3.5-5.1) mmol/L Chloride 105 (98-107) mmol/L Carbon Dioxide 21 L (22-30) mmol/L Anion Gap 16.8 H (5-15) MEQ/L BUN 15 (9-20) mg/dL Creatinine 0.64 L (0.66-1.25) mg/dL Estimated GFR 115.3 ML/MIN Glucose 163 H (74-106) mg/dL POC Glucometer 145 H (74 to 106) mg/dL Lactic Acid (0.4-2.0) Calcium 8.8 (8.4-10.2) mg/dL Magnesium (1.6-2.3) mg/dL Total Bilirubin (0.2-1.3) mg/dL AST (17-59) U/L ALT (0-50) U/L Alkaline Phosphatase (38-126) U/L Creatine Kinase (55-170) U/L Troponin I (0.000-0.033) ng/mL Serum Total Protein (6.3-8.2) g/dL Albumin (3.5-5.0) g/dL Lipase (23-300) U/L Urine Color (Yellow) Urine Appearance (Clear) Urine pH (4.6-8.0) Ur Specific [place] (1.005-1.030) Urine Protein (Negative) Urine Glucose (UA) (Negative) mg/dL Urine Ketones (Negative) Urine Blood (Negative) Urine Nitrite (Negative) Urine Bilirubin (Negative) Urine Urobilinogen (0.2) mg/dL Ur Leukocyte Esterase (Negative) U Hyaline Cast (Auto) (0-2) /LPF Urine Microscopic RBC (0-5) /HPF Urine Microscopic WBC (0-5) /HPF Ur Epithelial Cells (None Seen) /HPF Urine Bacteria (None Seen) /HPF Urine Culture Reflexed (NO) Influenza Type A Ag (NEGATIVE) Influenza Type B Ag (NEGATIVE) RSV (PCR) (NEGATIVE) SARS-CoV-2 (PCR) (NEGATIVE) 06/17/24 06/17/24 Range/Units 11:36 15:30 WBC (4.23-9.07) x10^3/uL RBC (4.63-6.08) x10^6/uL Hgb (13.7-17.5) g/dL Hct (40.1-51.0) % MCV (79.0-92.2) fL MCH (25.7-32.2) pg MCHC (32.3-36.5) g/dL RDW (11.6-14.4) % Plt Count (163-337) x10^3/uL MPV (9.4-12.4) fL Gran % (34.0-67.9) % Immature Gran % (Auto) (0.001-0.429) % Nucleat RBC Rel Count (0.00-0.2) % Eos # (Auto) (0.04-0.54) x10^3/uL Immature Gran # (Auto) (0.001-0.031) x10^3u/L Absolute Lymphs (auto) (1.32-3.57) x10^3/uL Absolute Monos (auto) (0.30-0.82) x10^3/uL Absolute Nucleated RBC (0.00-0.012) x10^3u/L Lymphocytes % (21.8-53.1) % Monocytes % (5.3-12.2) % Eosinophils % (0.8-7.0) % Basophils % (0.2-1.2) % Absolute Granulocytes (1.78-5.38) x10^3/uL Basophils # (0.01-0.08) x10^3/uL Sodium (135-145) mmol/L Potassium (3.5-5.1) mmol/L Chloride (98-107) mmol/L Carbon Dioxide (22-30) mmol/L Anion Gap (5-15) MEQ/L BUN (9-20) mg/dL Creatinine (0.66-1.25) mg/dL Estimated GFR ML/MIN Glucose (74-106) mg/dL POC Glucometer 169 H (74 to 106) mg/dL Lactic Acid (0.4-2.0) Calcium (8.4-10.2) mg/dL Magnesium (1.6-2.3) mg/dL Total Bilirubin (0.2-1.3) mg/dL AST (17-59) U/L ALT (0-50) U/L Alkaline Phosphatase (38-126) U/L Creatine Kinase (55-170) U/L Troponin I < 0.012 (0.000-0.033) ng/mL Serum Total Protein (6.3-8.2) g/dL Albumin (3.5-5.0) g/dL Lipase (23-300) U/L Urine Color (Yellow) Urine Appearance (Clear) Urine pH (4.6-8.0) Ur Specific [place] (1.005-1.030) Urine Protein (Negative) Urine Glucose (UA) (Negative) mg/dL Urine Ketones (Negative) Urine Blood (Negative) Urine Nitrite (Negative) Urine Bilirubin (Negative) Urine Urobilinogen (0.2) mg/dL Ur Leukocyte Esterase (Negative) U Hyaline Cast (Auto) (0-2) /LPF Urine Microscopic RBC (0-5) /HPF Urine Microscopic WBC (0-5) /HPF Ur Epithelial Cells (None Seen) /HPF Urine Bacteria (None Seen) /HPF Urine Culture Reflexed (NO) Influenza Type A Ag (NEGATIVE) Influenza Type B Ag (NEGATIVE) RSV (PCR) (NEGATIVE) SARS-CoV-2 (PCR) (NEGATIVE) Radiology Exams: Radiology Procedures Category Date Time Status CHEST 1 VIEW (PORTABLE) Stat Exams 06/16/24 21:13 Completed Assessment/Plan (1) Recurrent seizures Current Visit: Yes Status: Acute Code(s): G40.909 - EPILEPSY, UNSP, NOT INTRACTABLE, WITHOUT STATUS EPILEPTICUS (2) Chest pain Current Visit: Yes Status: Acute Code(s): R07.9 - CHEST PAIN, UNSPECIFIED (3) HTN (hypertension) Current Visit: Yes Status: Acute Code(s): I10 - ESSENTIAL (PRIMARY) HYPERTENSION (4) Hx of coronary artery disease Current Visit: Yes Status: Acute Code(s): Z86.79 - PERSONAL HISTORY OF OTHER DISEASES OF THE CIRCULATORY SYSTEM (5) Type II diabetes mellitus Current Visit: Yes Status: Acute (6) Schizoaffective disorder Current Visit: Yes Status: Acute Code(s): F25.9 - SCHIZOAFFECTIVE DISORDER, UNSPECIFIED (7) Nicotine dependence Current Visit: Yes Status: Acute Assessment & Plan: ## Recurrent seizures secondary to TBI. It appears that the seizures have been uncontrolled for at least the last month, although the history is somewhat unreliable. However, he is been having multiple seizures throughout the day today. No clear triggers for why this would be. He was loaded with Keppra, and has not had seizures since then. Continue home Lamictal 50 BID (note, this dose was just recently increased) Start Keppra 500 mg p.o. BID, as this is what was used to terminate his seizures in the ED - Neurology consult- recommended to continue Keppra OP and F/U with neurology OP. - Seizure this afternoon- ativan 2mg IV x1 ## Chest pain patient has risk factors with his smoking history, prior RI, and somewhat typical description of his angina with associated symptoms, although appears to be nonexertional and perhaps not relieved by nitroglycerin. Also, the symptoms appear to be associated with his seizures, and may not truly reflect angina. His first 2 troponins are negative, and he has no EKG changes. Monitor on telemetry troponin x3 negative Try to relieve his chest pain with his PRN Bentyl and Tums from his home medication list, and if relieved, will not pursue further stress testing - cardiology consult after CP again this evening- repeat EKG and Trops, nitro SL ## Type 2 diabetes on insulin at home. Continue home Lantus 45 units QHS, lispro 10 units with meals Placed on moderate dose sliding scale insulin Hold home metformin while inpatient ## Hypertension blood pressure controlled Continue home lisinopril 5 ## History of CAD with reported history of stent placement. Continue atorvastatin 20, aspirin 81 mg ## Schizoaffective disorder Continue home risperidone 1 mg BID, gabapentin 300 TID, Lexapro 15 QHS ## Nicotine dependence patient is a former half pack a day smoker, but quit 3 months ago. Continue nicotine 14 mg patch - advised cessation Code(s): F17.200 - NICOTINE DEPENDENCE, UNSPECIFIED, UNCOMPLICATED Code(s): F17.200 - NICOTINE DEPENDENCE, UNSPECIFIED, UNCOMPLICATED
[2024-06-17] MEDS: Ativan 2 MG/1 ML VIAL IV ONE (17:02)
[2024-06-17] MEDS: MELATONIN PO SCH (21:45)
[2024-06-17] MEDS: Lantus Insulin SQ SCH (21:45)
[2024-06-17] MEDS: Pepcid 20 MG PO SCH (21:46)
[2024-06-17] MEDS: ZOCOR 20MG PO SCH (21:46)
[2024-06-17] MEDS: Lexapro PO SCH (21:46)
[2024-06-17] MEDS: BENTYL 20 MG PO PRN (23:46)
[2024-06-17] MEDS: Zofran 4 MG/2 ML VIAL IV PRN (23:54)
[2024-06-18 06:05] LABS: Hematocrit 31.2 % (40.1-51.0); Hemoglobin 10.2 g/dL (13.7-17.5); Mean Cell Volume 85.7 fL (79.0-92.2); Mean Corpuscular Hgb Concent. 32.7 g/dL (32.3-36.5); Mean Platelet Volume 9.7 fL (9.4-12.4); Platelet Count 248 x10^3/uL (163-337); Red Blood Count 3.64 x10^6/uL (4.63-6.08); Red Cell Distribution Width 12.7 % (11.6-14.4); White Blood Count 6.8 x10^3/uL (4.23-9.07)
[2024-06-18 06:26] LABS: ALBUMIN 3.6 g/dL (3.5-5.0); ANION GAP 14.1 MEQ/L (5-15); BILIRUBIN,TOTAL 0.4 mg/dL (0.2-1.3); Creatinine 1 0.69 mg/dL (0.66-1.25); EST GLOMERULAR FILTRATION RATE 112.7 ML/MIN; Potassium 4.4 mmol/L (3.5-5.1)
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
[2024-06-18 11:43] VITALS: BP 116/58; PULSE 66; RESP 20; TEMP 97.5; O2SAT 96
== END 2024-06-18 12:20 ==
LOC: ED 20:25 → MED SURG 06-17 00:54
PROVIDERS: ADMIT Internal Medicine; ATTEND Internal Medicine
DX: G40.909 Epilepsy, unspecified, not intractable, without status epilepticus (principal); R07.9 Chest pain, unspecified; I10 Essential (primary) hypertension; I25.10 Atherosclerotic heart disease of native coronary artery without angina pectoris; F25.9 Schizoaffective disorder, unspecified; E78.00 Pure hypercholesterolemia, unspecified; E11.9 Type 2 diabetes mellitus without complications; F17.200 Nicotine dependence, unspecified, uncomplicated; Z86.79 Personal history of other diseases of the circulatory system; Z87.820 Personal history of traumatic brain injury; Z79.899 Other long term (current) drug therapy
CPT/HCPCS: 0241U; 36415; 71045; 80048; 80053; 81001; 82550; 82947; 83605; 83690; 83735; 84484; 85025; 85027; 93005; 93268; 96374; 96375; 99285; G0378; Q3014; J1817; J1953; J2060; J2270; J2405; A9270-GY

== ENCOUNTER 2024-06-19 19:49 | Emergency (ER) | payer MEDICAID ==
[2024-06-19 19:59] VITALS: TEMP 96.5; O2SAT 100
[2024-06-19] MEDS ORDERED: Ativan 2 MG/1 ML VIAL ONE (20:37)
[2024-06-19 20:40] LABS: Absolute Neutrophil Ct (ANC) 4.51 x10^3/uL (1.78-5.38); BASOPHIL % 0.4 % (0.2-1.2); Basophil (Absolute #) 0.03 x10^3/uL (0.01-0.08); Eosinophil % 1.9 % (0.8-7.0); Eosinophil (Absolute #) 0.15 x10^3/uL (0.04-0.54); Hematocrit 31.9 % (40.1-51.0); Hemoglobin 10.7 g/dL (13.7-17.5); IMMATURE GRAN # 0.03 x10^3u/L (0.001-0.031); IMMATURE GRAN % 0.4 % (0.001-0.429); Lymphocyte (Absolute #) 2.42 x10^3/uL (1.32-3.57); Lymphocytes % 30.7 % (21.8-53.1); Mean Cell Volume 85.1 fL (79.0-92.2); Mean Corpuscular Hemoglobin 28.5 pg (25.7-32.2); Mean Corpuscular Hgb Concent. 33.5 g/dL (32.3-36.5); Mean Platelet Volume 9.2 fL (9.4-12.4); Monocyte (Absolute #) 0.73 x10^3/uL (0.30-0.82); Monocytes % 9.3 % (5.3-12.2); Neutrophil % 57.3 % (34.0-67.9); Platelet Count 254 x10^3/uL (163-337); Red Blood Count 3.75 x10^6/uL (4.63-6.08); Red Cell Distribution Width 12.4 % (11.6-14.4); White Blood Count 7.9 x10^3/uL (4.23-9.07)
[2024-06-19 20:54] LABS: ALBUMIN 3.9 g/dL (3.5-5.0); ANION GAP 14.5 MEQ/L (5-15); BILIRUBIN,TOTAL 0.4 mg/dL (0.2-1.3); Creatinine 1 0.82 mg/dL (0.66-1.25); Potassium 4.3 mmol/L (3.5-5.1); Total Protein 6.4 g/dL (6.3-8.2)
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
[2024-06-19 22:06] VITALS: BP 133/68; PULSE 65; RESP 18
[2024-06-23 02:03] LABS: Gabapentin 3.8 ug/mL (4.0-16.0); Lamotrigine 1.3 ug/mL (2.0-20.0)
== END 2024-06-19 22:13 | disposition home or self-care (01) ==
LOC: ED 19:49
DX: G40.909 Epilepsy, unspecified, not intractable, without status epilepticus (principal); E11.9 Type 2 diabetes mellitus without complications; Z79.4 Long term (current) use of insulin; Z79.84 Long term (current) use of oral hypoglycemic drugs; Z79.899 Other long term (current) drug therapy
CPT/HCPCS: 36415; 80053; 80171; 80175; 85025; 99282; 99283; J2060

== ENCOUNTER 2024-06-21 20:26 | Observation (INO) | payer MEDICAID ==
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
[2024-06-21 21:00] LABS: Absolute Neutrophil Ct (ANC) 5.26 x10^3/uL (1.78-5.38); BASOPHIL % 0.4 % (0.2-1.2); Basophil (Absolute #) 0.03 x10^3/uL (0.01-0.08); Eosinophil % 2.2 % (0.8-7.0); Eosinophil (Absolute #) 0.19 x10^3/uL (0.04-0.54); Hematocrit 32.8 % (40.1-51.0); Hemoglobin 11.1 g/dL (13.7-17.5); IMMATURE GRAN # 0.02 x10^3u/L (0.001-0.031); IMMATURE GRAN % 0.2 % (0.001-0.429); Lymphocyte (Absolute #) 2.43 x10^3/uL (1.32-3.57); Lymphocytes % 28.5 % (21.8-53.1); Mean Cell Volume 85.2 fL (79.0-92.2); Mean Corpuscular Hemoglobin 28.8 pg (25.7-32.2); Mean Corpuscular Hgb Concent. 33.8 g/dL (32.3-36.5); Mean Platelet Volume 9.1 fL (9.4-12.4); Monocyte (Absolute #) 0.61 x10^3/uL (0.30-0.82); Monocytes % 7.1 % (5.3-12.2); Neutrophil % 61.6 % (34.0-67.9); Platelet Count 258 x10^3/uL (163-337); Red Blood Count 3.85 x10^6/uL (4.63-6.08); Red Cell Distribution Width 12.4 % (11.6-14.4); White Blood Count 8.5 x10^3/uL (4.23-9.07)
[2024-06-21 22:05] LABS: Appearance Clear (Clear); Bacteria None Seen /HPF (None Seen); Bilirubin Negative (Negative); Blood Negative (Negative); Epithelial Cells None Seen /HPF (None Seen); Glucose, Urine Negative (Negative); Hyaline Casts NONE SEEN /LPF (0-2); Ketones Negative (Negative); Leukocyte Esterase Negative (Negative); Nitrite Negative (Negative); Protein,Urine Dip Trace (Negative); RBC 0-2 /HPF (0-5); Specific Gravity <=1.005 (1.005-1.030); Urobilinogen 0.2 mg/dL (0.2); WBC 0-2 /HPF (0-5)
[2024-06-21 22:11] LABS: ALBUMIN 3.8 g/dL (3.5-5.0); ANION GAP 16.2 MEQ/L (5-15); BILIRUBIN,TOTAL 0.5 mg/dL (0.2-1.3); Calcium 9.5 mg/dL (8.4-10.2); Creatinine 1 0.84 mg/dL (0.66-1.25); EST GLOMERULAR FILTRATION RATE 106.2 ML/MIN; Potassium 4.9 mmol/L (3.5-5.1); Total Protein 6.1 g/dL (6.3-8.2)
[2024-06-21 22:14] LABS: Amphetamine,Urine NEGATIVE (NEGATIVE); Barbiturate,Urine NEGATIVE (NEGATIVE); Benzodiazepine,Urine NEGATIVE (NEGATIVE); Cocaine,Urine NEGATIVE (NEGATIVE); Methadone,Urine NEGATIVE (NEGATIVE); Opiate,Urine NEGATIVE (NEGATIVE); PCP,Urine NEGATIVE (NEGATIVE); THC,Urine NEGATIVE (NEGATIVE)
[2024-06-21] MEDS ORDERED: Keppra 500 MG/5 ML ONE ×2 (23:00→23:01)
[2024-06-21] MEDS ORDERED: D5w 100ML Mini Bag 100 ML 100 ML IV ONE (23:01)
[2024-06-21] MEDS: Keppra 500 MG/5 ML*** 1,000 MG in D5w 100ML Mini Bag 100 ML 100 ML IV ONE (23:05)
[2024-06-22] MEDS: Keppra 500 MG/5 ML*** 1,000 MG in D5w 100ML Mini Bag 100 ML 100 ML IV ONE (01:38)
[2024-06-22] MEDS ORDERED: BENTYL 20 MG PO PRN (04:39)
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
[2024-06-22] MEDS ORDERED: Tums EX 750 MG ONE (05:20)
[2024-06-22] MEDS: NORCO 5/325 MG PO PRN (05:22)
[2024-06-22] MEDS: NON-FORMULARY ITEM (Calcium Carbonate [Tums] 200 MG Tab.Chew) PO PRN (05:22)
[2024-06-22] MEDS ORDERED: Ativan 2 MG/1 ML VIAL ONE (05:53)
[2024-06-22] MEDS: Ativan 2 MG/1 ML VIAL IV ONE (06:02)
[2024-06-22] MEDS ORDERED: Tums EX 750 MG PO PRN (07:54)
[2024-06-22 08:03] LABS: Absolute Neutrophil Ct (ANC) 4.43 x10^3/uL (1.78-5.38); BASOPHIL % 0.4 % (0.2-1.2); Basophil (Absolute #) 0.03 x10^3/uL (0.01-0.08); Eosinophil % 2.1 % (0.8-7.0); Eosinophil (Absolute #) 0.16 x10^3/uL (0.04-0.54); Hematocrit 32.2 % (40.1-51.0); Hemoglobin 10.7 g/dL (13.7-17.5); IMMATURE GRAN # 0.03 x10^3u/L (0.001-0.031); IMMATURE GRAN % 0.4 % (0.001-0.429); Lymphocyte (Absolute #) 2.36 x10^3/uL (1.32-3.57); Lymphocytes % 30.8 % (21.8-53.1); Mean Cell Volume 86.1 fL (79.0-92.2); Mean Corpuscular Hemoglobin 28.6 pg (25.7-32.2); Mean Corpuscular Hgb Concent. 33.2 g/dL (32.3-36.5); Mean Platelet Volume 9.8 fL (9.4-12.4); Monocyte (Absolute #) 0.66 x10^3/uL (0.30-0.82); Monocytes % 8.6 % (5.3-12.2); Neutrophil % 57.7 % (34.0-67.9); Platelet Count 251 x10^3/uL (163-337); Red Blood Count 3.74 x10^6/uL (4.63-6.08); Red Cell Distribution Width 12.5 % (11.6-14.4); White Blood Count 7.7 x10^3/uL (4.23-9.07)
[2024-06-22] MEDS ORDERED: MEDICATION INTERVENTION MC SCH (08:15)
[2024-06-22 08:18] LABS: ALBUMIN 3.9 g/dL (3.5-5.0); ANION GAP 15.5 MEQ/L (5-15); BILIRUBIN,TOTAL 0.3 mg/dL (0.2-1.3); Calcium 9.3 mg/dL (8.4-10.2); Creatinine 1 0.77 mg/dL (0.66-1.25); EST GLOMERULAR FILTRATION RATE 109.1 ML/MIN; Potassium 4.3 mmol/L (3.5-5.1); Total Protein 6.4 g/dL (6.3-8.2)
--- NOTE | 2024-06-22 08:37 | XRAY ---
Indication: Seizure. Multiple contiguous axial images obtained through the head without contrast. Comparison: None Study slightly degraded by motion even with repeat CT. Age-appropriate global atrophy. No gross acute intracranial hemorrhage, abnormal extra-axial fluid collection, or mass effect. Fourth ventricle is midline without hydrocephalus. Murray-white matter differentiation preserved. Bony calvarium grossly intact. Visualized paranasal sinuses and mastoid air cells are clear. Impression: Motion artifact. No gross acute intracranial abnormalities.
[2024-06-22] MEDS: HUMALOG SQ SCH (08:56)
[2024-06-22] MEDS: HUMALOG SQ PRN (08:57)
[2024-06-22] MEDS ORDERED: THIAMINE HCL 100 MG PO SCH (10:00)
[2024-06-22] MEDS ORDERED: BABY ASPIRIN 81 MG CHEW PO SCH (10:00)
[2024-06-22] MEDS ORDERED: NON-FORMULARY ITEM (Folic Acid [Folic Acid] 0.4 MG Tablet) PO SCH (10:00)
[2024-06-22] MEDS ORDERED: LAMOTRIGINE 50 MG PO SCH (10:00)
[2024-06-22] MEDS: ENOXAPARIN SODIUM SQ SCH (11:32)
[2024-06-22] MEDS: ECOTRIN 81 MG PO SCH (11:32)
[2024-06-22] MEDS: KEPPRA PO SCH (11:32)
[2024-06-22] MEDS: Lopressor 25MG Tab PO SCH (11:32)
[2024-06-22] MEDS: FOLATE 1 MG PO SCH (11:32)
[2024-06-22] MEDS: VITAMIN B-1 100 MG PO SCH (11:33)
[2024-06-22] MEDS: NICODERM CQ 14 MG TOP SCH (11:33)
[2024-06-22] MEDS: Senokot-S Tablet PO SCH (11:33)
[2024-06-22] MEDS: Risperdal 1 MG PO SCH (11:33)
[2024-06-22] MEDS: NEURONTIN PO SCH (11:33)
[2024-06-22] MEDS: Zestril 5 MG PO SCH (11:33)
[2024-06-22] MEDS: lamICTAL 100MG TABLET PO SCH (15:38)
[2024-06-22] MEDS: MELATONIN PO SCH (21:56)
[2024-06-22] MEDS: Lexapro PO SCH (21:57)
[2024-06-22] MEDS: ZOCOR 20MG PO SCH (21:59)
[2024-06-22] MEDS ORDERED: NON-FORMULARY ITEM (Atorvastatin Calcium [Atorvastatin Calcium] 20 MG Tablet) PO SCH (22:00)
[2024-06-22] MEDS: TYLENOL 325 MG PO PRN (22:00)
[2024-06-22] MEDS ORDERED: NON-FORMULARY ITEM (Melatonin [Melatonin] 5 MG Capsule) PO SCH (22:00)
[2024-06-22] MEDS ORDERED: NON-FORMULARY ITEM (Escitalopram Oxalate [Escitalopram Oxalate] 20 MG Tablet) PO SCH (22:00)
[2024-06-22] MEDS: Lantus Insulin SQ SCH (22:03)
[2024-06-23 05:25] LABS: Hematocrit 33.7 % (40.1-51.0); Hemoglobin 11.2 g/dL (13.7-17.5); Mean Cell Volume 87.1 fL (79.0-92.2); Mean Corpuscular Hemoglobin 28.9 pg (25.7-32.2); Mean Corpuscular Hgb Concent. 33.2 g/dL (32.3-36.5); Mean Platelet Volume 10.3 fL (9.4-12.4); Platelet Count 198 x10^3/uL (163-337); Red Blood Count 3.87 x10^6/uL (4.63-6.08); Red Cell Distribution Width 12.6 % (11.6-14.4); White Blood Count 6.5 x10^3/uL (4.23-9.07)
[2024-06-23 05:47] LABS: ANION GAP 14.9 MEQ/L (5-15); Calcium 9.2 mg/dL (8.4-10.2); Creatinine 1 1.02 mg/dL (0.66-1.25); EST GLOMERULAR FILTRATION RATE 89.5 ML/MIN; Potassium 4.7 mmol/L (3.5-5.1)
[2024-06-23 07:47] VITALS: BP 108/60; PULSE 58; RESP 16; TEMP 96.6; O2SAT 91
--- NOTE | 2024-06-23 15:17 | PCM.DS ---
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 Patient was admitted last week after newly moving to [facility], with daily seizures. During his hospital stay, he was seen by neurology, who noted that patient has been describing uncontrolled daily seizures for years, and that he needed to establish care with an outpatient neurologist here, but did not warrant further inpatient admission. He returned to the detention, but presents again today with the same complaint of daily seizures, with subsequent burning chest pain. He again states today that he has had daily seizures since he was first diagnosed at 9 years old after the TBI. He also describes the same recurrent burning chest pain. He was also seen by cardiology during his last stay, who added Toprol-XL and changed his simvastatin to atorvastatin. Neurology saw patient again in the ED, and initially recommended loading with Keppra, increasing dose to 1 g BID, and returning to detention. However, because patient had persistent seizures in the ED, second teleneurology consult recommended loading another 1 g of Keppra and admitting patient for an EEG. EEG was performed and normal. Neurology was re-consulted with recommendations for an extended EEG with neurology follow up. The extended EEG was performed today - results are being sent to patient's neurologist Dr. Sultana and follow up appt being made. Per neurology team patient can return to nursing facility on increased dose of Keppra at 1000mg BID and follow up closely with neurology OP. Discharge Note New Diagnosis: Recurrent seizures New Medications: Keppra increased dose 1000mg BID Follow Up: Neurology/cardiology Results pending: Extended EEG - being sent to Neurology for follow up I spent 35 minutes [id number] with the patient on the day of discharge performing discharge exam, discussing hospital stay and discharge instructions with patient and caregivers, preparation of discharge records, prescriptions & referral forms and addressing any questions/concerns the patient had as documented above. - Vitals & Intake/Output Vital Signs: Vital Signs Temperature 96.6 F 06/23/24 07:45 Pulse Rate 58 L 06/23/24 07:45 Respiratory Rate 16 06/23/24 07:45 Blood Pressure 108/60 06/23/24 07:45 O2 Sat by Pulse Oximetry 91 L 06/23/24 07:45 Intake & Output: Intake & Output 06/21/24 06/22/24 06/23/24 06/24/24 11:59 11:59 11:59 11:59 Intake Total 580 1850 Balance 580 1850 Weight 124.5 kg - Lab Result Diagrams: 06/23/24 05:13 06/23/24 05:13 Lab Results-Last 24 Hrs: Lab Results-Last 24 Hours 06/22/24 06/22/24 06/23/24 Range/Units 16:48 21:07 05:13 WBC 6.5 (4.23-9.07) x10^3/uL RBC 3.87 L (4.63-6.08) x10^6/uL Hgb 11.2 L (13.7-17.5) g/dL Hct 33.7 L (40.1-51.0) % MCV 87.1 (79.0-92.2) fL MCH 28.9 (25.7-32.2) pg MCHC 33.2 (32.3-36.5) g/dL RDW 12.6 (11.6-14.4) % Plt Count 198 (163-337) x10^3/uL MPV 10.3 (9.4-12.4) fL Sodium (135-145) mmol/L Potassium (3.5-5.1) mmol/L Chloride (98-107) mmol/L Carbon Dioxide (22-30) mmol/L Anion Gap (5-15) MEQ/L BUN (9-20) mg/dL Creatinine (0.66-1.25) mg/dL Estimated GFR ML/MIN Glucose (74-106) mg/dL POC Glucometer 144 H 140 H (74 to 106) mg/dL Calcium (8.4-10.2) mg/dL 06/23/24 06/23/24 06/23/24 Range/Units 05:13 07:04 10:23 WBC (4.23-9.07) x10^3/uL RBC (4.63-6.08) x10^6/uL Hgb (13.7-17.5) g/dL Hct (40.1-51.0) % MCV (79.0-92.2) fL MCH (25.7-32.2) pg MCHC (32.3-36.5) g/dL RDW (11.6-14.4) % Plt Count (163-337) x10^3/uL MPV (9.4-12.4) fL Sodium 141 (135-145) mmol/L Potassium 4.7 (3.5-5.1) mmol/L Chloride 106 (98-107) mmol/L Carbon Dioxide 25 (22-30) mmol/L Anion Gap 14.9 (5-15) MEQ/L BUN 24 H (9-20) mg/dL Creatinine 1.02 (0.66-1.25) mg/dL Estimated GFR 89.5 ML/MIN Glucose 164 H (74-106) mg/dL POC Glucometer 202 H 151 H (74 to 106) mg/dL Calcium 9.2 (8.4-10.2) mg/dL /10/12 Range/Units 14:58 WBC (4.23-9.07) x10^3/uL RBC (4.63-6.08) x10^6/uL Hgb (13.7-17.5) g/dL Hct (40.1-51.0) % MCV (79.0-92.2) fL MCH (25.7-32.2) pg MCHC (32.3-36.5) g/dL RDW (11.6-14.4) % Plt Count (163-337) x10^3/uL MPV (9.4-12.4) fL Sodium (135-145) mmol/L Potassium (3.5-5.1) mmol/L Chloride (98-107) mmol/L Carbon Dioxide (22-30) mmol/L Anion Gap (5-15) MEQ/L BUN (9-20) mg/dL Creatinine (0.66-1.25) mg/dL Estimated GFR ML/MIN Glucose (74-106) mg/dL POC Glucometer 152 H (74 to 106) mg/dL Calcium (8.4-10.2) mg/dL Micro Results-Entire Visit: Accuchecks Date 06/23/24 Date 06/23/24 Date 06/22/24 Time 17:00 - Radiology Exams Ordered Rad Exams-Entire Visit: Radiology Procedures Category Date Time Status HEAD WITHOUT CONTRAST [CT] Stat Exams 06/21/24 20:38 Completed - Procedures and Test Procedures and Tests throughout Hospitalization: Therapy Orders & Screens 06/22/24 04:41 EEG 41-60 Minutes (Normal) ONCE Comment: Reason For Exam: Diagnosis: Status epilepticus 06/23/24 11:29 EEG >60 Minutes (Extended) ONCE Comment: Reason For Exam: Diagnosis: Seizures Discharge Exam General Appearance: no apparent distress Neurologic Exam: alert, oriented x 3, cooperative Eye Exam: PERRL Ears, Nose, Throat Exam: normal ENT inspection Neck Exam: normal inspection Respiratory Exam: normal breath sounds, lungs clear Cardiovascular Exam: regular rate/rhythm, normal heart sounds Gastrointestinal/Abdomen Exam: soft, normal bowel sounds Male Genitalia Exam: deferred Rectal Exam: deferred Back Exam: normal inspection Extremity Exam: normal inspection Skin Exam: normal color Final Diagnosis/Problem List - Final Discharge Diagnosis/Problem (1) Recurrent seizures Current Visit: No Status: Acute Assessment & Plan: ## Recurrent seizures secondary to TBI. Per patient, has been having daily seizures almost his entire life. For last visits note with neurologist, no indication for repeated admission solely due to seizures, but neurology consult wanted to increase Keppra dose and obtain an EEG. Increase Keppra to 1000 mg BID Continue Lamictal 50 mg BID EEG with normal results -Extended EEG performed 06/23/24- results pending - will send to Dr. Tacos Fajardo OP with follow up appt scheduled ## CAD patient's burning chest pain is typically relieved with Tums and Bentyl. He was seen by cardiology last visit, who did not feel patient required any further restratification. Continue atorvastatin 20 mg, aspirin 81 mg, and Toprol-XL 25 mg daily -Cardiology follow scheduled from last admission ## Type 2 diabetes hemoglobin A1c 6.3 last week. Continue home Lantus 45 units QHS and lispro [address] on high-dose sliding scale insulin Diabetic diet ## Hypertension blood pressure controlled Continue lisinopril 5, Toprol-XL 25 ## Schizoaffective disorder Continue risperidone 1 mg BID, Lexapro 15 mg QHS, and gabapentin 3 mg TID Code(s): G40.909 - EPILEPSY, UNSP, NOT INTRACTABLE, WITHOUT STATUS EPILEPTICUS (2) HTN (hypertension) Current Visit: No Status: Acute Code(s): I10 - ESSENTIAL (PRIMARY) HYPERTENSION (3) Schizoaffective disorder Current Visit: No Status: Acute Code(s): F25.9 - SCHIZOAFFECTIVE DISORDER, UNSPECIFIED (4) Type II diabetes mellitus Current Visit: No Status: Acute (5) Coronary artery disease Current Visit: No Status: Chronic Code(s): I25.10 - ATHSCL HEART DISEASE OF [place] CORONARY ARTERY W/O ANG PCTRS - Discharge Discharge Date: 06/23/24 Disposition: DC TO ANY "OTHER" ALF Condition: Stable Prescriptions: New Levetiracetam [Keppra] 1,000 mg PO BID tablet Continue Calcium Carbonate [Tums] 1,000 mg PO Q8H PRN PRN PRN Reason: Chest Pain Guaifen/Phenyleph/Acetaminophn [Mucinex Sinus-Max Severe Cplt] 1 tab PO DAILY PRN PRN PRN Reason: Sinus Congestion Sennosides/Docusate Sodium [Senna-Docusate Sodium Tablet] 2 tab PO BID risperiDONE [Risperidone] 1 mg PO BID Nicotine 14 mg [Nicoderm Cq 14 mg] 14 mg TOP DAILY Metformin HCl 500 mg [Glucophage 500 MG] 500 mg PO BID Melatonin 10 mg PO HS Loperamide HCl [Loperamide] 2 mg PO Q2H/PRN PRN PRN Reason: Diarrhea lisinopriL [Lisinopril] 5 mg PO DAILY Lamotrigine [Lamotrigine ER] 50 mg PO BID Insulin Glargine,Hum.rec.anlog [Lantus] 45 unit SQ HS Insulin Lispro 10 units SQ AC Insulin Lispro [Insulin Lispro Kwikpen U-100] 1 unit IJ UD glyBURIDE [Glyburide] 2.5 mg PO DAILY Gabapentin 300 mg PO TID Folic Acid 1 mg PO DAILY Escitalopram Oxalate 15 mg PO HS Dicyclomine HCl 20 mg [Bentyl 20 mg] 20 mg PO Q6H PRN PRN PRN Reason: Chest Pain Menthol [Biofreeze] 1 applic TOP DAILY Carboxymethylcellulose Sodium [Artificial Tears] 1 drop OP BID Aspirin 81 mg PO DAILY Atorvastatin Calcium 20 mg PO HS Thiamine HCl [Vitamin B-1] 100 mg PO DAILY Nitroglycerin 0.4 mg Tablet [Nitrostat 0.4 MG Tablet] 0.4 mg SL Q5MIN PRN MR X 3 PRN 90 Days #180 tab.sl PRN Reason: Chest Pain Metoprolol Tartrate 25 mg [Lopressor 25MG Tab] 25 mg PO DAILY Discontinued Levetiracetam [Keppra] 500 mg PO BID 30 Days #60 tablet Additional Instructions: RESUME PREVIOUS NH ORDERS with Keppra changed to 1000mg BID Patient to follow up with Neurology DASIA - Extended EEG results will be sent to Dr. Tacos Fajardo SEE ATTACHED MED LIST Follow up with: [facility] [Primary Care Provider] - ADOLFO SULTANA DO [NON-STAFF PHY W/O PRIVILEGES] - 09/30/24 8:15 am Ian Ramirez MD [CONSULTING PHYSICIAN] - 07/07/24 1:00 pm
[2024-06-27 07:39] LABS: Levetiracetam 14.1 ug/mL (10.0-40.0)
[2024-06-27 08:43] LABS: Lamotrigine 1.1 ug/mL (2.0-20.0)
== END 2024-06-23 16:05 ==
LOC: ED 20:26 → MED SURG 06-22 02:44
PROVIDERS: ADMIT Internal Medicine; ATTEND Internal Medicine
DX: G40.909 Epilepsy, unspecified, not intractable, without status epilepticus (principal); I10 Essential (primary) hypertension; F25.9 Schizoaffective disorder, unspecified; E11.9 Type 2 diabetes mellitus without complications; I25.10 Atherosclerotic heart disease of native coronary artery without angina pectoris; I25.2 Old myocardial infarction; R41.82 Altered mental status, unspecified; R20.2 Paresthesia of skin; M62.81 Muscle weakness (generalized); Z87.820 Personal history of traumatic brain injury; Z79.899 Other long term (current) drug therapy
CPT/HCPCS: 36415; 70450; 80048; 80053; 80175; 80177; 80185; 80307; 81001; 82550; 82947; 83605; 84484; 85025; 85027; 93005; 93041; 93268; 94760; 95812; 95813; 96374; 96376; 99285; J1650; J1817; J1953; J2060; Q3014; A9270-GY; G0378

== ENCOUNTER 2024-06-29 22:37 | Emergency (ER) | payer MEDICAID ==
[2024-06-29 22:52] VITALS: TEMP 98.6
[2024-06-29 22:55] LABS: Absolute Neutrophil Ct (ANC) 4.42 x10^3/uL (1.78-5.38); BASOPHIL % 0.4 % (0.2-1.2); Basophil (Absolute #) 0.03 x10^3/uL (0.01-0.08); Eosinophil % 1.9 % (0.8-7.0); Eosinophil (Absolute #) 0.14 x10^3/uL (0.04-0.54); Hematocrit 31.3 % (40.1-51.0); Hemoglobin 10.5 g/dL (13.7-17.5); IMMATURE GRAN # 0.02 x10^3u/L (0.001-0.031); IMMATURE GRAN % 0.3 % (0.001-0.429); Lymphocyte (Absolute #) 2.28 x10^3/uL (1.32-3.57); Lymphocytes % 30.3 % (21.8-53.1); Mean Cell Volume 84.1 fL (79.0-92.2); Mean Corpuscular Hemoglobin 28.2 pg (25.7-32.2); Mean Corpuscular Hgb Concent. 33.5 g/dL (32.3-36.5); Monocyte (Absolute #) 0.63 x10^3/uL (0.30-0.82); Monocytes % 8.4 % (5.3-12.2); Neutrophil % 58.7 % (34.0-67.9); Platelet Count 222 x10^3/uL (163-337); Red Blood Count 3.72 x10^6/uL (4.63-6.08); Red Cell Distribution Width 12.3 % (11.6-14.4); White Blood Count 7.5 x10^3/uL (4.23-9.07)
[2024-06-29 23:02] LABS: ALBUMIN 4.1 g/dL (3.5-5.0); ANION GAP 14.5 MEQ/L (5-15); BILIRUBIN,TOTAL 0.4 mg/dL (0.2-1.3); Calcium 8.9 mg/dL (8.4-10.2); Creatinine 1 0.94 mg/dL (0.66-1.25); EST GLOMERULAR FILTRATION RATE 98.8 ML/MIN; MAGNESIUM 1.9 mg/dL (1.6-2.3); Potassium 4.7 mmol/L (3.5-5.1); Total Protein 6.7 g/dL (6.3-8.2)
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
[2024-06-30 02:25] VITALS: RESP 12
[2024-06-30 03:38] LABS: INFLUENZA A NEGATIVE (NEGATIVE); INFLUENZA B NEGATIVE (NEGATIVE); RESPIRATORY SYNCTIAL VIRUS NEGATIVE (NEGATIVE); SARS-CoV-2 Xpert Express NEGATIVE (NEGATIVE)
[2024-06-30 04:32] VITALS: BP 129/77; PULSE 68
[2024-06-30 05:05] VITALS: O2SAT 98
== END 2024-06-30 05:02 | disposition short-term general hospital (02) ==
LOC: ED 22:37
DX: G40.909 Epilepsy, unspecified, not intractable, without status epilepticus (principal); R07.9 Chest pain, unspecified; M51.9 Unspecified thoracic, thoracolumbar and lumbosacral intervertebral disc disorder; E11.9 Type 2 diabetes mellitus without complications; Z79.4 Long term (current) use of insulin; Z79.84 Long term (current) use of oral hypoglycemic drugs; Z79.899 Other long term (current) drug therapy
CPT/HCPCS: 0241U; 36415; 80053; 82947; 83735; 84484; 85025; 93005; 93041; 94760; 99285

== ENCOUNTER 2024-07-20 12:05 | Emergency (ER) | payer MEDICAID ==
[2024-07-20 12:09] VITALS: TEMP 66; O2SAT 97
[2024-07-20] MEDS ORDERED: Norflex 60 MG/2 ML ONE (12:34)
[2024-07-20] MEDS ORDERED: MORPHINE SULFATE 4 MG INJ ONE (12:35)
[2024-07-20] MEDS: MORPHINE SULFATE 4 MG INJ IM ONE (12:37)
[2024-07-20] MEDS: Norflex 60 MG/2 ML IM ONE (12:37)
[2024-07-20 13:25] VITALS: RESP 15
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
[2024-07-20 14:18] VITALS: BP 98/59; PULSE 64
== END 2024-07-20 14:28 | disposition home or self-care (01) ==
LOC: ED 12:05
DX: G89.29 Other chronic pain (principal); M54.50 Low back pain, unspecified; I10 Essential (primary) hypertension; E11.9 Type 2 diabetes mellitus without complications; Z79.4 Long term (current) use of insulin; Z79.84 Long term (current) use of oral hypoglycemic drugs; Z79.899 Other long term (current) drug therapy
CPT/HCPCS: 96372; 99283; 99284; J2270; J2360

== ENCOUNTER 2024-07-28 21:11 | Emergency (ER) | payer MEDICAID ==
[2024-07-28 21:31] VITALS: TEMP 97.5
[2024-07-28] MEDS ORDERED: MORPHINE SULFATE 4 MG INJ ONE (21:55)
[2024-07-28] MEDS: MORPHINE SULFATE 4 MG INJ IM ONE (22:00)
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
[2024-07-29 01:24] VITALS: PULSE 58; O2SAT 96
[2024-07-29 02:08] VITALS: BP 111/71; RESP 14
== END 2024-07-29 02:41 | disposition home or self-care (01) ==
LOC: ED 21:11
DX: M79.604 Pain in right leg (principal); M79.605 Pain in left leg; I10 Essential (primary) hypertension; E11.9 Type 2 diabetes mellitus without complications; Z79.4 Long term (current) use of insulin; Z79.84 Long term (current) use of oral hypoglycemic drugs; Z79.899 Other long term (current) drug therapy
CPT/HCPCS: 96372; 99282; 99283; J2270